=== PATIENT | female | born 1945 | race Hispanic/Latino ===

== ENCOUNTER 2020-04-03 12:14 | Inpatient (IN) | payer OTHER ==
[~2020-04-03] VITALS: Ht 152.4 cm; Wt 65.8 kg
[2020-04-03] MEDS ORDERED: SODIUM CHLORIDE 0.9% 1000ML 1,000 ML IV STA (12:35)
[2020-04-03] MEDS ORDERED: KETOROLAC TROMETHAMINE 30 MG/ML VIAL IV NR (12:45)
[2020-04-03] MEDS ORDERED: ONDANSETRON HCL INJ 2MG/ML 2ML 2 MG/ML VIAL IV NR (12:45)
[2020-04-03] MEDS ORDERED: MORPHINE SULFATE 2 MG/ML SYR 1ML IV NR (12:45)
[2020-04-03 12:50] LABS: BASOPHILS % 0.2 % (0.0-1.0); EOSINOPHILS # (AUTO) 0.1 (0.0-0.4); EOSINOPHILS % 0.6 % (0.0-6.0); HEMATOCRIT 36.5 % (34.2-44.1); HEMOGLOBIN 11.7 g/dL (12.0-16.0); LYMPHOCYTES # (AUTO) 1.1 (1.0-3.2); LYMPHOCYTES % 11.8 % (18.0-39.1); MEAN CORPUSCULAR HEMOGLOBIN 28.1 pg (28-32); MEAN CORPUSCULAR HGB CONC 32.1 g/dL (31-35); MEAN CORPUSCULAR VOLUME 87.7 fL (81-99); MONOCYTES # (AUTO) 0.3 (0.2-0.8); MONOCYTES % 3.2 % (4.4-11.3); NEUTROPHILS # (AUTO) 7.3 (2.1-6.9); NEUTROPHILS % 81.3 % (38.7-80.0); PLATELET COUNT 164 x10e3/uL (140-360); RED BLOOD COUNT 4.16 x10e6/uL (3.6-5.1); RED CELL DISTRIBUTION WIDTH 13.9 % (11.7-14.4)
[2020-04-03 12:59] LABS: CLARITY,URINE CLEAR (CLEAR); COLOR,URINE YELLOW (YELLOW); LEUKOCYTE ESTERASE ,URINE NEGATIVE (NEGATIVE); NITRITE,URINE NEGATIVE (NEGATIVE); PROTEIN,URINE DIPSTICK 2+ (NEGATIVE)
[2020-04-03 13:00] LABS: BACTERIA,URINE RARE /HPF; BILIRUBIN,URINE NEGATIVE (NEGATIVE); EPITHELIAL CELLS,URINE FEW /LPF; KETONES,URINE 2+ (NEGATIVE); URINE UROBILINOGEN 1 mg/dL (0.2 - 1)
[2020-04-03 13:12] LABS: ALANINE AMINOTRANSFERASE 46 IU/L (0-55); ALBUMIN 2.8 g/dL (3.5-5.0); ALBUMIN/GLOBULIN RATIO 0.6 (0.8-2.0); ALKALINE PHOSPHATASE 156 IU/L (40-150); ANION GAP 15.6 mmol/L (8-16); BLOOD UREA NITROGEN 10 mg/dL (7-26); BUN/CREATININE RATIO 14 (6-25); CALCIUM 9.3 mg/dL (8.4-10.2); CARBON DIOXIDE 23 mmol/L (22-29); CHLORIDE 103 mmol/L (98-107); CREATININE, SERUM 0.71 mg/dL (0.57-1.11); EST GLOMERULAR FILTRATION RATE > 60 ML/MIN (60-); GLUCOSE 221 mg/dL (74-118); LIPASE 13 U/L (8-78); POTASSIUM 3.6 mmol/L (3.5-5.1); SODIUM 138 mmol/L (136-145)
[2020-04-03] MEDS: MEROPENEM 1GM 100 ML IV SCH ×2 (15:41→22:52)
[2020-04-03] MEDS ORDERED: ONDANSETRON HCL INJ 2MG/ML 2ML 2 MG/ML VIAL IV PRN (16:15)
[2020-04-03] MEDS ORDERED: DEXTROSE 50% SYRINGE 50 ML IV PRN (16:15)
[2020-04-03] MEDS: INSULIN LISPRO 100 UNIT/1 ML 3ML VIAL SQ SCH ×2 (17:00→21:00)
[2020-04-03] MEDS: SODIUM CHLORIDE 0.9% 1000ML 1,000 ML IV SCH ×2 (17:01→22:30)
[2020-04-03 18:31] VITALS: BP 117/47
[2020-04-03 18:32] VITALS: BP 117/47
[2020-04-03] MEDS ORDERED: METFORMIN HCL850 MG PO (18:42)
[2020-04-03] MEDS ORDERED: tylenol PO (18:42)
[2020-04-03] MEDS ORDERED: [UNRECOGNIZED DRUG - OTHER] PO (18:42)
[2020-04-03] MEDS ORDERED: CEPHALEXIN500 MG PO (18:42)
[2020-04-03] MEDS ORDERED: INFLUENZA VIRUS VAC SPLIT INJ 0.5 ML SYR IM ONE (18:45)
[2020-04-03] MEDS: MORPHINE SULFATE 2 MG/ML SYR 1ML IV PRN ×2 (18:50→23:10)
[2020-04-03] MEDS ORDERED: [UNRECOGNIZED DRUG - OTHER] PO (19:44)
[2020-04-03] MEDS ORDERED: [UNRECOGNIZED DRUG - OTHER] PO (19:44)
[2020-04-03] MEDS ORDERED: metformin PO (19:45)
[2020-04-03 20:00] VITALS: BP 119/55
[2020-04-03 21:00] VITALS: BP 119/55
[2020-04-04] VITALS (8 sets, daily range): BP systolic 137–151; BP diastolic 55–66
[2020-04-04 00:18] LABS: CREATINE KINASE < 7 IU/L (29-168)
[2020-04-04] MEDS: HYDROMORPHONE 1MG/1ML INJ IV PRN ×2 (02:00→20:07)
[2020-04-04 05:34] LABS: BASOPHILS % 0.2 % (0.0-1.0); EOSINOPHILS % 0.2 % (0.0-6.0); HEMATOCRIT 31.3 % (34.2-44.1); HEMOGLOBIN 9.9 g/dL (12.0-16.0); LYMPHOCYTES # (AUTO) 1.3 (1.0-3.2); LYMPHOCYTES % 14.8 % (18.0-39.1); MEAN CORPUSCULAR HGB CONC 31.6 g/dL (31-35); MEAN CORPUSCULAR VOLUME 88.7 fL (81-99); MONOCYTES # (AUTO) 0.8 (0.2-0.8); MONOCYTES % 9.5 % (4.4-11.3); NEUTROPHILS # (AUTO) 6.5 (2.1-6.9); NEUTROPHILS % 74.6 % (38.7-80.0); PLATELET COUNT 150 x10e3/uL (140-360); RED BLOOD COUNT 3.53 x10e6/uL (3.6-5.1); RED CELL DISTRIBUTION WIDTH 14.1 % (11.7-14.4)
[2020-04-04] MEDS: MEROPENEM 1GM 100 ML IV SCH ×3 (06:00→21:41)
[2020-04-04 06:01] LABS: ALANINE AMINOTRANSFERASE 59 IU/L (0-55); ALBUMIN 2.2 g/dL (3.5-5.0); ALBUMIN/GLOBULIN RATIO 0.6 (0.8-2.0); ALKALINE PHOSPHATASE 187 IU/L (40-150); ANION GAP 14.1 mmol/L (8-16); BLOOD UREA NITROGEN 12 mg/dL (7-26); BUN/CREATININE RATIO 19 (6-25); CALCIUM 8.1 mg/dL (8.4-10.2); CARBON DIOXIDE 24 mmol/L (22-29); CHLORIDE 106 mmol/L (98-107); CREATININE, SERUM 0.63 mg/dL (0.57-1.11); EST GLOMERULAR FILTRATION RATE > 60 ML/MIN (60-); GLUCOSE 193 mg/dL (74-118); POTASSIUM 4.1 mmol/L (3.5-5.1); SODIUM 140 mmol/L (136-145)
[2020-04-04] MEDS ORDERED: DOCUSATE SODIUM 100 MG CAP PO PRN (06:45)
[2020-04-04 06:53] LABS: CREATINE KINASE < 7 IU/L (29-168)
[2020-04-04] MEDS ORDERED: INFLUENZA VIRUS VAC SPLIT INJ 0.5 ML SYR IM ONE (06:55)
[2020-04-04 07:12] LABS: CHOL/HDL RATIO 8.6 (3.0-3.6)
[2020-04-04] MEDS: INSULIN LISPRO 100 UNIT/1 ML 3ML VIAL SQ SCH ×4 (07:30→21:00)
[2020-04-04] MEDS ORDERED: DEXTROSE 50% SYRINGE 50 ML IV PRN (07:45)
[2020-04-04] MEDS ORDERED: INSULIN REGULAR, HUMAN 100 UNIT/1 ML 3ML VIAL SQ SCH (11:30)
[2020-04-04] MEDS: GABAPENTIN 100 MG CAP PO SCH ×2 (13:56→21:41)
[2020-04-04] MEDS: ACETAMINOPHEN 325 MG TAB PO PRN (14:42)
[2020-04-04 15:10] LABS: CREATINE KINASE MB 0.7 ng/mL (0-5.0)
[2020-04-04] MEDS: ZOLPIDEM TARTRATE 5 MG TAB PO PRN (21:41)
[2020-04-05] VITALS (8 sets, daily range): BP systolic 123–157; BP diastolic 54–77
[2020-04-05] MEDS: GABAPENTIN 100 MG CAP PO SCH ×3 (05:51→22:22)
[2020-04-05] MEDS: MEROPENEM 1GM 100 ML IV SCH ×3 (05:51→22:22)
[2020-04-05] MEDS: INSULIN LISPRO 100 UNIT/1 ML 3ML VIAL SQ SCH ×4 (10:05→22:00)
[2020-04-05] MEDS: HYDROMORPHONE 1MG/1ML INJ IV PRN ×3 (11:44→22:35)
[2020-04-05] MEDS: ACETAMINOPHEN 325 MG TAB PO PRN (22:42)
[2020-04-05] MEDS ORDERED: SODIUM CHLORIDE 0.9% 1000ML 1,000 ML ONE (23:43)
[2020-04-06] VITALS (8 sets, daily range): BP systolic 102–152; BP diastolic 53–75
[2020-04-06] MEDS: GABAPENTIN 100 MG CAP PO SCH ×3 (06:00→20:45)
[2020-04-06] MEDS: MEROPENEM 1GM 100 ML IV SCH ×3 (06:00→20:45)
[2020-04-06] MEDS: INSULIN LISPRO 100 UNIT/1 ML 3ML VIAL SQ SCH ×4 (07:30→20:48)
[2020-04-06] MEDS: HYDROMORPHONE 1MG/1ML INJ IV PRN ×2 (09:03→14:09)
[2020-04-06] MEDS ORDERED: CYCLOBENZAPRINE HCL 10 MG TAB PO PRN (09:45)
[2020-04-06] MEDS ORDERED: GABAPENTIN 100 MG CAP PO SCH (09:45)
[2020-04-06] MEDS: MAGNESIUM HYDROXIDE 30 ML UDC PO SCH (11:22)
[2020-04-06] MEDS: HYOSCYAMINE 0.125 MG TAB PO SCH ×2 (14:09→20:45)
[2020-04-06] MEDS ORDERED: ONDANSETRON HCL 4 MG ORAL DISINTEGRATING TAB PO PRN (16:45)
[2020-04-06] MEDS: SENNOSIDES 8.6 MG TAB PO SCH (16:48)
[2020-04-06] MEDS: DOCUSATE SODIUM 100 MG CAP PO SCH (16:48)
[2020-04-06] MEDS: ZOLPIDEM TARTRATE 5 MG TAB PO PRN (20:46)
[2020-04-07 00:48] VITALS: BP 128/54
[2020-04-07] MEDS ORDERED: SODIUM CHLORIDE 0.9% 1000ML 1,000 ML ONE (03:44)
[2020-04-07 04:30] VITALS: BP 88/42
[2020-04-07 05:07] VITALS: BP 150/61
[2020-04-07] MEDS: HYOSCYAMINE 0.125 MG TAB PO SCH (05:27)
[2020-04-07] MEDS: GABAPENTIN 100 MG CAP PO SCH (05:27)
[2020-04-07] MEDS: MEROPENEM 1GM 100 ML IV SCH (05:27)
[2020-04-07] MEDS: HYDROMORPHONE 1MG/1ML INJ IV PRN (05:42)
[2020-04-07 05:44] LABS: BASOPHILS % 0.4 % (0.0-1.0); EOSINOPHILS # (AUTO) 0.2 (0.0-0.4); EOSINOPHILS % 2.4 % (0.0-6.0); HEMATOCRIT 30.1 % (34.2-44.1); HEMOGLOBIN 9.8 g/dL (12.0-16.0); LYMPHOCYTES # (AUTO) 1.4 (1.0-3.2); MEAN CORPUSCULAR HGB CONC 32.6 g/dL (31-35); MONOCYTES # (AUTO) 0.5 (0.2-0.8); MONOCYTES % 7.5 % (4.4-11.3); NEUTROPHILS % 69.1 % (38.7-80.0); PLATELET COUNT 251 x10e3/uL (140-360)
[2020-04-07 06:09] LABS: ALANINE AMINOTRANSFERASE 44 IU/L (0-55); ALBUMIN 2.1 g/dL (3.5-5.0); ALBUMIN/GLOBULIN RATIO 0.5 (0.8-2.0); ALKALINE PHOSPHATASE 224 IU/L (40-150); ANION GAP 13.8 mmol/L (8-16); BLOOD UREA NITROGEN 8 mg/dL (7-26); BUN/CREATININE RATIO 14 (6-25); CALCIUM 8.3 mg/dL (8.4-10.2); CARBON DIOXIDE 23 mmol/L (22-29); CHLORIDE 105 mmol/L (98-107); CREATININE, SERUM 0.58 mg/dL (0.57-1.11); EST GLOMERULAR FILTRATION RATE > 60 ML/MIN (60-); GLUCOSE 209 mg/dL (74-118); POTASSIUM 3.8 mmol/L (3.5-5.1); SODIUM 138 mmol/L (136-145)
[2020-04-07] MEDS ORDERED: TRAMADOL HCL 50 MG TAB PO PRN (06:30)
[2020-04-07] MEDS ORDERED: DIPHENHYDRAMINE HCL 25 MG CAP PO PRN (06:30)
[2020-04-07] MEDS: INSULIN LISPRO 100 UNIT/1 ML 3ML VIAL SQ SCH ×2 (07:30→11:30)
[2020-04-07] MEDS ORDERED: MILK OF MA400 MG/5 M PO (07:40)
[2020-04-07] MEDS ORDERED: LEVSIN-SL0.125 MG PO (07:40)
[2020-04-07] MEDS ORDERED: CEFUROXIME250 MG PO (07:40)
[2020-04-07] MEDS ORDERED: SENOKOT8.6 MG PO (07:40)
[2020-04-07] MEDS ORDERED: GABAPENTIN100 MG PO (07:40)
[2020-04-07] MEDS ORDERED: ULTRAM 50MG50 MG PO (07:40)
[2020-04-07] MEDS: DOCUSATE SODIUM 100 MG CAP PO SCH (08:17)
[2020-04-07] MEDS: SENNOSIDES 8.6 MG TAB PO SCH (08:18)
[2020-04-07] MEDS: MAGNESIUM HYDROXIDE 30 ML UDC PO SCH (08:18)
[2020-04-07 08:32] VITALS: BP 146/55
[2020-04-07 09:11] VITALS: BP 146/55
[2020-04-07 12:19] VITALS: BP 126/56
== END 2020-04-07 13:35 | disposition home or self-care (01) | DRG 690 ==
LOC: ER 12:33 → ERHOLD 16:00 → MED/SURG2 18:09
PROVIDERS: ADMIT Internal Medicine; ATTEND Internal Medicine
DX: N12 Tubulo-interstitial nephritis, not specified as acute or chronic (principal); Z20.828 Contact with and (suspected) exposure to other viral communicable diseases; R33.9 Retention of urine, unspecified; D64.9 Anemia, unspecified; R31.29 Other microscopic hematuria; E11.40 Type 2 diabetes mellitus with diabetic neuropathy, unspecified; Z90.49 Acquired absence of other specified parts of digestive tract; Z90.710 Acquired absence of both cervix and uterus; E83.51 Hypocalcemia; R10.9 Unspecified abdominal pain; N10 Acute pyelonephritis; Z23 Encounter for immunization
CPT/HCPCS: 36415; 74176; 76705; 80053; 80061; 81001; 82550; 82553; 82948; 83036; 83690; 84484; 85025; 87086; 99284; J1170; J1885; J2270; J2405; J7030; U0002

== ENCOUNTER → 2020-08-08 | Day surgery (SDC) | payer OTHER ==
[2020-08-04 08:49] LABS: BASOPHILS % 0.4 % (0.0-1.0); EOSINOPHILS # (AUTO) 0.1 (0.0-0.4); EOSINOPHILS % 1.9 % (0.0-6.0); HEMATOCRIT 36.6 % (34.2-44.1); HEMOGLOBIN 11.1 g/dL (12.0-16.0); LYMPHOCYTES # (AUTO) 1.4 (1.0-3.2); LYMPHOCYTES % 26.8 % (18.0-39.1); MEAN CORPUSCULAR HEMOGLOBIN 24.8 pg (28-32); MEAN CORPUSCULAR HGB CONC 30.3 g/dL (31-35); MEAN CORPUSCULAR VOLUME 81.9 fL (81-99); MONOCYTES # (AUTO) 0.3 (0.2-0.8); MONOCYTES % 5.3 % (4.4-11.3); NEUTROPHILS # (AUTO) 3.4 (2.1-6.9); NEUTROPHILS % 65.2 % (38.7-80.0); PLATELET COUNT 245 x10e3/uL (140-360); RED BLOOD COUNT 4.47 x10e6/uL (3.6-5.1); RED CELL DISTRIBUTION WIDTH 17.2 % (11.7-14.4)
[~2020-08-08] MED LIST: ACETAMINOPHEN325 M1 PO; ASPIRIN81 MG PO; CEFUROXIME250 MG PO; CEPHALEXIN500 MG PO; GABAPENTIN100 MG PO; GLYBURIDE5 MG PO; LEVOFLOXACIN250 MG PO; LEVSIN-SL0.125 MG PO; MELOXICAM7.5 MG PO; METFORMIN HCL850 MG PO; MILK OF MA400 MG/5 M PO; PIOGLITAZONE HC45 MG PO; SENOKOT8.6 MG PO; ULTRAM 50MG50 MG PO; [UNRECOGNIZED DRUG - OTHER] PO; [UNRECOGNIZED DRUG - OTHER] PO; [UNRECOGNIZED DRUG - OTHER] PO; [UNRECOGNIZED DRUG - OTHER] PO; metformin PO; tylenol PO
[2020-08-08 11:02] VITALS: BP 100/46
== END | disposition home or self-care (01) ==
LOC: OR 07:25
PROVIDERS: ATTEND Internal Medicine Gastroenterology
DX: K59.00 Constipation, unspecified (principal); K57.30 Diverticulosis of large intestine without perforation or abscess without bleeding; K64.8 Other hemorrhoids; E11.9 Type 2 diabetes mellitus without complications; R03.0 Elevated blood-pressure reading, without diagnosis of hypertension; F32.9 Major depressive disorder, single episode, unspecified; Z01.810 Encounter for preprocedural cardiovascular examination; Z01.812 Encounter for preprocedural laboratory examination; Z79.84 Long term (current) use of oral hypoglycemic drugs; Z68.25 Body mass index [BMI] 25.0-25.9, adult; Z86.16 Personal history of COVID-19
CPT/HCPCS: 36415; 45378; 45380; 82948; 83735; 85025; 93005

== ENCOUNTER → 2021-04-10 | Outpatient (CLI) | payer OTHER ==
[~2021-04-10] MED LIST changes: +GADOBENATE DIMEGLUMINE 1 ML IV ONE; +SODIUM CHLORIDE 0.9% 50ML 50 ML ONE
[2021-04-10 09:12] LABS: CREATININE, SERUM 0.68 mg/dL (0.57-1.11)
== END ==
LOC: MRI 08:22
PROVIDERS: ATTEND Internal Medicine Gastroenterology
DX: R10.84 Generalized abdominal pain (principal); R63.4 Abnormal weight loss
CPT/HCPCS: 36415; 74185; 82565; 84520; A9577

== ENCOUNTER 2021-05-22 09:40 | Emergency (ER) | payer OTHER ==
[~2021-05-22] VITALS: Ht 152.4 cm; Wt 65.8 kg
[~2021-05-22 09:40] MED LIST changes: -GADOBENATE DIMEGLUMINE 1 ML IV ONE; -SODIUM CHLORIDE 0.9% 50ML 50 ML ONE
[2021-05-22] MEDS ORDERED: SODIUM CHLORIDE 0.9% 1000ML 1,000 ML IV STA (10:20)
[2021-05-22] MEDS ORDERED: ONDANSETRON HCL INJ 2MG/ML 2ML 2 MG/ML VIAL IV STA (10:20)
[2021-05-22 10:59] LABS: BASOPHILS % 0.3 % (0.0-1.0); EOSINOPHILS # (AUTO) 0.1 (0.0-0.4); EOSINOPHILS % 0.5 % (0.0-6.0); HEMATOCRIT 39.3 % (34.2-44.1); HEMOGLOBIN 12.3 g/dL (12.0-16.0); LYMPHOCYTES # (AUTO) 1.3 (1.0-3.2); LYMPHOCYTES % 12.7 % (18.0-39.1); MEAN CORPUSCULAR HEMOGLOBIN 26.2 pg (28-32); MEAN CORPUSCULAR HGB CONC 31.3 g/dL (31-35); MEAN CORPUSCULAR VOLUME 83.8 fL (81-99); MONOCYTES # (AUTO) 0.5 (0.2-0.8); MONOCYTES % 4.7 % (4.4-11.3); NEUTROPHILS # (AUTO) 8.4 (2.1-6.9); NEUTROPHILS % 81.4 % (38.7-80.0); PLATELET COUNT 368 x10e3/uL (140-360); RED BLOOD COUNT 4.69 x10e6/uL (3.6-5.1); RED CELL DISTRIBUTION WIDTH 16.4 % (11.7-14.4)
[2021-05-22 11:10] LABS: PARTIAL THROMBOPLASTIN TIME 33.7 seconds (23.8-35.5); PROTHROMBIN TIME 13.9 seconds (11.9-14.5)
[2021-05-22 11:24] LABS: ALANINE AMINOTRANSFERASE 31 IU/L (0-55); ALBUMIN 3.2 g/dL (3.5-5.0); ALBUMIN/GLOBULIN RATIO 0.7 (0.8-2.0); ALKALINE PHOSPHATASE 149 IU/L (40-150); ANION GAP 9.7 mmol/L (8-16); BLOOD UREA NITROGEN 13 mg/dL (7-26); BUN/CREATININE RATIO 21 (6-25); CALCIUM 9.7 mg/dL (8.4-10.2); CARBON DIOXIDE 30 mmol/L (22-29); CHLORIDE 101 mmol/L (98-107); CREATINE KINASE 20 IU/L (29-168); CREATININE, SERUM 0.62 mg/dL (0.57-1.11); EST GLOMERULAR FILTRATION RATE 94 ML/MIN (60-); GLUCOSE 185 mg/dL (74-118); LIPASE 20 U/L (8-78); MAGNESIUM 1.7 MG/DL (1.3-2.1); POTASSIUM 3.7 mmol/L (3.5-5.1); SODIUM 137 mmol/L (136-145)
== END 2021-05-22 15:36 | disposition home or self-care (01) ==
LOC: ER 10:33
DX: R11.2 Nausea with vomiting, unspecified (principal); E11.65 Type 2 diabetes mellitus with hyperglycemia; E11.40 Type 2 diabetes mellitus with diabetic neuropathy, unspecified; Z20.822 Contact with and (suspected) exposure to COVID-19
CPT/HCPCS: 36415; 74022; 80053; 82550; 82553; 83690; 83735; 84484; 85025; 85610; 85730; 99284; C9113; J2405; J7030; U0002

== ENCOUNTER → 2022-03-13 | Day surgery (SDC) | payer OTHER ==
[2022-03-08 09:17] LABS: BASOPHILS % 0.3 % (0.0-1.0); EOSINOPHILS # (AUTO) 0.1 (0.0-0.4); EOSINOPHILS % 1.4 % (0.0-6.0); HEMATOCRIT 44.5 % (34.2-44.1); HEMOGLOBIN 13.7 g/dL (12.0-16.0); LYMPHOCYTES # (AUTO) 1.6 (1.0-3.2); LYMPHOCYTES % 27.3 % (18.0-39.1); MEAN CORPUSCULAR HEMOGLOBIN 27.8 pg (28-32); MEAN CORPUSCULAR HGB CONC 30.8 g/dL (31-35); MEAN CORPUSCULAR VOLUME 90.3 fL (81-99); MONOCYTES # (AUTO) 0.3 (0.2-0.8); MONOCYTES % 5.8 % (4.4-11.3); NEUTROPHILS # (AUTO) 3.8 (2.1-6.9); NEUTROPHILS % 65.2 % (38.7-80.0); PLATELET COUNT 228 x10e3/uL (140-360); RED BLOOD COUNT 4.93 x10e6/uL (3.6-5.1); RED CELL DISTRIBUTION WIDTH 14.6 % (11.7-14.4)
[2022-03-08 09:46] LABS: ANION GAP 14.8 mmol/L (8-16); CREATININE, SERUM 0.7 mg/dL (0.57-1.11); POTASSIUM 3.8 mmol/L (3.5-5.1)
[~2022-03-13] MED LIST changes: +AMLODIPINE BESYL5 MG PO; +CYMBALTA20 MG PO; +DEXAMETHASONE SOD PHOS INJ 4 MG/ML SDV ONE; +DEXILANT60 MG PO; +DOXEPIN HCL25 MG PO; +FENTANYL CITRATE/PF 100MCG/2 ML INJ ONE; +FIBER THERAPY454 GM PO; +GLIMEPIRIDE4 MG PO; +LIDOCAINE HCL 2% LOCAL INJ 5 ML SDV VIAL INJ ONE; +MIDAZOLAM HCL 2 MG/2 ML VIAL ONE; +ONDANSETRON HCL INJ 2MG/ML 2ML 2 MG/ML VIAL ONE; +ONDANSETRON ODT8 MG PO; +POVIDONE IODINE 0.05% 0.05 % ML PO ONE; +PROPOFOL IV EMULSION 10 MG/ML 20 ML VIAL ONE; +SENNA LAX8.6 MG PO; +SUCRALFATE1 GM PO; +TYMLOS1.56 ML SC
[2022-03-13 12:25] VITALS: BP 143/83
== END | disposition home or self-care (01) ==
LOC: OR 07:05
PROVIDERS: ATTEND Specialist
DX: S52.502A Unspecified fracture of the lower end of left radius, initial encounter for closed fracture (principal); E11.9 Type 2 diabetes mellitus without complications; I10 Essential (primary) hypertension; K21.9 Gastro-esophageal reflux disease without esophagitis; F41.9 Anxiety disorder, unspecified; W18.41XA Slipping, tripping and stumbling without falling due to stepping on object, initial encounter; Y92.007 Garden or yard of unspecified non-institutional (private) residence as the place of occurrence of the external cause; Z01.810 Encounter for preprocedural cardiovascular examination; Z01.812 Encounter for preprocedural laboratory examination; Z01.818 Encounter for other preprocedural examination; Z79.84 Long term (current) use of oral hypoglycemic drugs; Z79.899 Other long term (current) drug therapy
CPT/HCPCS: 25605; 36415 ×2; 71046; 76000; 80048; 82948; 85025; 93005; J0690; J1100; J2001; J2250; J2405; J2704; J3010